=== PATIENT | male | born 1965 | race Caucasian/White ===

== ENCOUNTER 2019-04-17 18:40 | Emergency (ER) | payer BC ==
[~2019-04-17] VITALS: Ht 170.2 cm; Wt 200.0 kg
[2019-04-17 20:25] VITALS: BP 174/80
[2019-04-17] MEDS ORDERED: ORPH100T PO (21:18)
[2019-04-17] MEDS ORDERED: NAPR-514 PO (21:18)
--- NOTE | 2019-04-17 21:19 | PHYS DOC ---
Past Medical History Past Medical History: No Pertinent History Past Surgical History: No Surgical History Alcohol Use: None Adult General Chief Complaint Chief Complaint: LOWER BACK PAIN OR INJURY [facility] HPI Patient is a 54 year old male, accompanied by female clinical rehabilitation aide, who presents to the emergency department with complaints of right-sided mid to low back pain for the last 4 days. Patient states that the pain began after he lifted a heavy item at work. He denies any numbness, tingling, or weakness of his affected extremities. Patient denies any radiation of pain into his right leg. He denies any saddle anesthesia, or loss of bowel/bladder control. Patient states that he went to the chiropractor a few times and that helped for a a few hours after an adjustment but then the pain just came back. Patient currently rates his pain a 6 out of 10 on the pain scale, he denies any alleviating factors. Patient states he took some Tylenol 2 days ago that helped a little bit but denies taking any Tylenol today. Patient states he does not have a primary care provider. All other ROS is neg unless otherwise noted in HPI. Review of Systems Review of Systems See Above Current Medications Current Medications Current Medications Medications (Trade) Dose Ordered Sig/Yoli Start Time Stop Time Status Last Admin Dose Admin Dexamethasone Sodium Phosphate (Decadron) 10 mg 1X ONCE 04/17/19 21:30 04/17/19 21:31 Orphenadrine Citrate (Norflex) 60 mg 1X ONCE 04/17/19 21:30 04/17/19 21:31 Allergies Allergies Allergies Coded Allergies Type Severity Reaction Last Updated Verified No Known Drug Allergies 04/17/19 No Physical Exam Physical Exam See Above Constitutional: Well developed, well nourished, no acute distress, non-toxic appearance. [] HENT: Normocephalic, atraumatic, bilateral external ears normal, nose normal. [] Eyes: PERRLA, EOMI, conjunctiva normal, no discharge. [] Neck: Normal range of motion, , no stridor. [] Cardiovascular:Heart rate regular rhythm, Lungs & Thorax: Bilateral breath sounds clear to auscultation, Respirations even and unlabored, no retractions, no respiratory distress [] Skin: Warm, dry, no erythema, no rash. [] Back: No bony tenderness or deformity; R thoracic and lumbar paraspinal TTP, no CVA tenderness. [] Extremities: No cyanosis, ROM intact, no edema. [] Neurologic: Alert and oriented X 3, no focal deficits noted. [] Psychologic: Affect normal, judgement normal, mood normal. [] Current Patient Data Vital Signs Vital Signs Date Time Temp Pulse Resp B/P (MAP) Pulse Ox O2 Delivery O2 Flow Rate FiO2 04/17/19 20:25 97.5 80 16 174/80 (111) 100 Room Air 97.5 EKG EKG [] Radiology/Procedures Radiology/Procedures [] Course & Med Decision Making Course & Med Decision Making Pertinent Labs and Imaging studies reviewed. (See chart for details) [] Dragon Disclaimer Dragon Disclaimer This electronic medical record was generated, in whole or in part, using a voice recognition dictation system. Departure Departure Impression: Primary Impression: Acute back pain Additional Impression: Pain in paraspinal region Disposition: HOME, SELF-CARE Condition: STABLE Referrals: UNKNOWN PCP NAME (PCP) Patient Instructions: Back Pain, Adult, [id number] Additional Instructions: Fill the prescription(s) and use as directed. Apply heat or ice for to sore areas as needed for comfort. Activity as tolerated. Follow up with your primary care doctor this week if symptoms persist, return to the ER if symptoms worsen. Scripts Naproxen (NAPROXEN) 500 Mg Tablet 1 TAB PO BID PRN for PAIN for 10 Days, #20 TAB 0 Refills Prov: KIMBER SUTHERLAND APRN 04/17/19 Orphenadrine Citrate (ORPHENADRINE CITRATE) 100 Mg Tablet.er 1 TAB PO BID PRN for PAIN for 10 Days, #20 TAB 0 Refills Prov: KIMBER SUTHERLAND APRN 04/17/19 Problem Qualifiers Primary Impression: Acute back pain Back pain location: thoracic back pain Back pain laterality: right Qualified Codes: M54.6 - Pain in thoracic spine KIMBER SUTHERLAND APRN Apr 17, 2019 21:18
[2019-04-17] MEDS ORDERED: ORPHENADRINE CITRATE 60 MG/2 ML VIAL. IM ONE (21:30)
[2019-04-17] MEDS ORDERED: DEXAMETHASONE SOD PHOS 20 MG/5 ML VIAL. PO ONE (21:30)
== END 2019-04-17 21:41 | disposition home or self-care (01) ==
LOC: ER 18:40
DX: M54.6 Pain in thoracic spine (principal); M54.5 Low back pain
CPT/HCPCS: 96372; 99283; J1100; J2360